=== PATIENT | male | born 1965 | race Caucasian/White ===

== ENCOUNTER 2016-09-23 23:23 | Emergency (ER) | payer OTHER ==
[~2016-09-23] VITALS: Ht 162.6 cm; Wt 77.1 kg
--- NOTE | 2016-09-23 23:23 | NUR ---
IV ESTABLISHED AT BEDSIDE 18G LEFT HAND.
--- NOTE | 2016-09-23 23:23 | NUR ---
6615 BIBA TO ER BED 1
--- NOTE | 2016-09-23 23:23 | NUR ---
Note colin in EDM - 09/24/16 at 0056 by MALINDA C/O FULL ARREST, PER EMS; PT. FULL ARREST, ON LMA WITH POSITIVE PRESSURE, 4 EPI GIVEN. IO ESTABLISH, NO BP, NO PUSLE EKG ASYSYTOLE. HX. HTN
--- NOTE | 2016-09-23 23:23 | NUR ---
C/O FULL ARREST, PER EMS; PT. FULL ARREST, ON LMA WITH POSITIVE PRESSURE, 4 EPI GIVEN. IO ESTABLISH, NO BP, NO PUSLE EKG ASYSYTOLE. PT WAS AT HOME WITH FAMILY WHEN PT C/O OF IT BEING HOT, BEGAN FANNING HIMSELF AND TOLD FAMILY TO GO TO THERE ROOMS, WHEN HE COLLAPSED. HEARD PT COLLAPSE AND CALLED EMS. WHEN [facility] ARRIVED, THEY STATE PT WAS ASYSTOLE TO [facility], THEY SHOCKED 5 TIMES, GAVE 5 ROUNDS OF EPI AND 2 LIDOCAINE ON THE FIELD, IO WAS ESTABLISHED ON THE LEFT FOOT BY EMS ON FIELD. HX. HTN, HYPERLIPIDEMIA, AND UNKNOWN BLOOD ISSUE, IS UNKNOWN OF MEDICATIONS
--- NOTE | 2016-09-23 23:23 | NUR ---
2322 Patient being evaluated by physician at bedside.
--- NOTE | 2016-09-23 23:41 | NUR ---
TIME OF PRONOUNCE BY LEIDY EMERSON AT 7961 Addendum: 09/24/16 at 0236 by DIVINE REFER TO CODE SHEET FOR MEDICATIONS AND PROCEDURES
--- NOTE | 2016-09-23 23:47 | NUR ---
7516 FULL ARREST BROUGHT IN BY PARAMEDICS..PT HAD LMA IN MOUTH. and being bagged and cpr being done. pt was intubated with 7.5 tube at 23 lipline.cpr being done by chief electrician.sxned large amounts of food from patients mouth. pt rts augusta and taisha were present at code
--- NOTE | 2016-09-23 23:58 | NUR ---
VENDOR QUALITY SUPERVISOR CALLED, SPOKE TO LUZ REFERRAL # [id number]
--- NOTE | 2016-09-24 00:05 | NUR ---
[facility] CALLED, SPOKE TO NEHEMIAH REFERRAL # [phone]
--- NOTE | 2016-09-24 00:12 | NUR ---
PROPERTY AND SUPPLY OFFICER CALLED BACK, WILL CALL BACK AGAIN.
--- NOTE | 2016-09-24 00:43 | NUR ---
MISSED ELECTRIC MOTOR ANALYST CALL, SAFIA RN AND ADRIANO RN WAS WITH FAMILY, ELECTRIC MOTOR ANALYST WILL CALL BACK
--- NOTE | 2016-09-24 00:53 | NUR ---
PRASANNA/FADIA CALLED BACK WITH CASE # [id number] Addendum: 09/24/16 at 0234 by DIVINE SPOKE WITH LEGAL ACTIVITY ADJUDICATORLEIDY CASTILLO. PRASANNA ALSO SPOKE WITH DAUGHTER RUBY; MOTHER AT SIDE
--- NOTE | 2016-09-24 01:08 | NUR ---
EMON- DO NOT EMBALM/ POSSIBLE AUTOPSY
--- NOTE | 2016-09-24 01:18 | NUR ---
HALI MCCARTY WAS CONTACTED, SPOKE TO CARMEN
--- NOTE | 2016-09-24 01:50 | NUR ---
PT [facility]SF[facility] RO[facility] BY MONY WHITMAN AND SAFIA WHITMAN
--- NOTE | 2016-09-24 02:05 | NUR ---
FAMILY AT BEDSIDE MEDSURG ROOM 126
--- NOTE | 2016-09-24 02:20 | NUR ---
KRYSTIN FROM [facility] F/U
--- NOTE | 2016-09-24 03:14 | NUR ---
SANTOS FROM [facility] ARRIVED TO [facility]
--- NOTE | 2016-09-24 03:26 | NUR ---
PT LEFT TO MORTUARY ACCOMPANIED BY [facility] TO [facility]
[2016-09-24] MEDS ORDERED: CODE BLUE PARTICIPANT 1 EA MISC MC ONE (10:05)
== END 2016-09-23 23:41 | disposition expired ==
LOC: MED 23:23
DX: I46.9 Cardiac arrest, cause unspecified (principal); I10 Essential (primary) hypertension